=== PATIENT | male | born 1955 | race Caucasian/White ===

== ENCOUNTER 2019-02-13 09:26 | Emergency (ER) | payer MEDICARE ==
[~2019-02-13] VITALS: Ht 180.3 cm; Wt 95.5 kg
[2019-02-13 10:18] LABS: BASOPHILS # (AUTO) 0.1 X10'3 (0-0.2); BASOPHILS % (AUTO) 0.6 % (0-1); EOSINOPHILS % (AUTO) 0.4 % (0-6); HEMATOCRIT 48.2 % (42.0-52.0); HEMOGLOBIN 16.1 g/dl (14.0-17.9); LYMPHOCYTES % (AUTO) 23.3 % (21-51); MEAN CORPUSCULAR HGB CONC 33.4 g/dL (33.0-36.5); MEAN CORPUSCULAR VOLUME 93.1 FL (78-98); MEAN PLATELET VOLUME 7.3 FL (7.4-10.4); MONOCYTES # (AUTO) 0.9 X10'3 (0-0.9); MONOCYTES % (AUTO) 10.2 % (2-12); NEUTROPHILS # (AUTO) 5.6 X10'3 (1.8-7.7); NEUTROPHILS % (AUTO) 65.5 % (42-75); PLATELET COUNT 383 X10'3 (140-440); RED BLOOD COUNT 5.19 X10'6 (4.70-6.10); RED CELL DISTRIBUTION WIDTH 14.3 % (11.5-14.5); WHITE BLOOD COUNT 8.6 X10'3 (4.5-11.0)
[2019-02-13 10:31] LABS: ALANINE AMINOTRANSFERASE 28 U/L (12-78); ALBUMIN 3.7 G/DL (3.4-5.0); ALBUMIN/GLOBULIN RATIO 0.9 (1.1-1.5); ALKALINE PHOSPHATASE 74 IU/L (46-116); ANION GAP 6 (8-16); ASPARTATE AMINO TRANSFERASE 16 U/L (10-37); BILIRUBIN,TOTAL 0.2 MG/DL (0.1-1.0); BLOOD UREA NITROGEN 12 MG/DL (7-18); BUN/CREATININE RATIO 10.2 (5.4-32.0); CHLORIDE 104 MMOL/L (99-107); CREATININE 1.18 MG/DL (0.60-1.10); GLUCOSE 121 MG/DL (70-104); POTASSIUM 4.4 MMOL/L (3.5-5.1); SODIUM 139 MMOL/L (135-145); TOTAL CARBON DIOXIDE 29.1 MMOL/L (24-32); TOTAL PROTEIN 7.9 G/DL (6.4-8.2); eGFR 63 ML/MIN
[2019-02-13] MEDS ORDERED: ipratropium/albuterol 3ml nebule NEB ONE (11:05)
[2019-02-13] MEDS ORDERED: normal saline 1000ml 1,000 ML IV ONE (11:05)
[2019-02-13] MEDS ORDERED: ALBU8HFA PO (12:47)
--- NOTE | 2019-02-13 12:57 | NUR ---
DAUGHTER XIMENA CALLED FOR TRANPORT, PHONE NUMBER [phone].
[2019-02-13 13:16] VITALS: BP 128/90
== END 2019-02-13 13:20 | disposition home or self-care (01) ==
LOC: ER 09:26
DX: J40 Bronchitis, not specified as acute or chronic (principal); E11.9 Type 2 diabetes mellitus without complications; F41.9 Anxiety disorder, unspecified; R42 Dizziness and giddiness; R19.7 Diarrhea, unspecified; F32.9 Major depressive disorder, single episode, unspecified; Z79.899 Other long term (current) drug therapy
CPT/HCPCS: 36415; 71046; 80053; 83605; 84484; 85025; 87040; 93005; 94640; 96360; 99284; J7030; 94760

== ENCOUNTER 2024-08-31 14:37 | Emergency (ER) | payer BC ==
[~2024-08-31] VITALS: Ht 182.9 cm; Wt 90.9 kg
[2024-08-31 14:45] VITALS: BP 118/73; PULSE 94; RESP 16; TEMP 97.5; O2SAT 98
--- NOTE | 2024-08-31 15:39 | Physician Documentation ---
History of Present Illness ~ Chief Complaint: Urinary Retention Stated Complaint: NOT ABLE TO URINATE Time Seen by MD: 15:30 Primary Medical Doctor: patrice [facility] This is a 69-year-old male with a history of BPH who presents after not being able to urinate for 6 hours causing him some lower abdominal discomfort, however once I was able to speaks patient you reports that he was able to urinate just prior to being placed in the room though was unable to give us a urine sample. A bladder scan was performed and multiple readings demonstrated less than 60 mL of retained urine, representing no significant postvoid residual. Patient reports he is feeling otherwise well and does have a follow up with primary care for referral to urologist. Patient reports that he has been having episodes of urinary retention for some time now and believes the tamsulosin he is on is no longer working. Patient reports no other acute symptoms or concerns. Medication Reconciliation Allergies: Coded Allergies: No Known Allergies (Unverified , 08/31/24) Past Medical History Past Medical History: Bronchitis, BPH, Diabetes, Anxiety, Depression Past Surgical History: noncontributory Alcohol Use: None Drug Use: none Lives In: Home Review of Systems ROS Urinary retention as stated above in the HPI, otherwise all systems are reviewed and negative. Physical Exam Vital Signs: Temperature: 97.5, Source: Temporal, Heart Rate: 94, Respiratory Rate: 16, BP: 118/73, Pulse Oximetry: 98, Weight: 90.910 Oxygen Flow Rate: 0 Physical Exam VITALS: Reviewed and as above. GENERAL: Alert, nontoxic appearing, no apparent distress. RESPIRATORY: No increased work of breathing, no respiratory distress, speaking in full clear sentences GI: Soft, nondistended, nontender, no rebound, no guarding, bowel sounds present Progress Results/Orders Results/Orders Vital Signs 08/31/24 14:45 Temp 97.5 Pulse 94 Resp 16 B/P (MAP) 118/73 Pulse Ox 98 O2 Flow Rate 0 Medical Decision Making Findings This 69-year-old male with history of BPH presented to the emergency department with concern of not being able to urinate for 6 hours though just prior to being placed in ED room he was able to urinate and no longer has symptoms. As this is an ongoing problem patient does have follow up with in the next four days with his primary care provider for referral to Urology, patient is already on tamsulosin. On my exam patient was otherwise well-appearing and asymptomatic and therefore is appropriate for outpatient follow up. With shared decision- making patient will be discharged without further workup to follow up with the primary care, patient provided careful return to care precautions, patient verbalized he will return to the emergency department if symptoms return. Urinary Diff Dx:Considerations: Include: Prostatitis, Urolithiasis, Urinary Obstruction, Urethritis, Urinary retention, UTI Departure Disposition: HOME / SELF CARE / HOMELESS Impression: Primary Impression: Difficulty initiating urinary stream Condition: Improved Discharge Instructions: Acute Urinary Retention, Male Additional Instructions: It is reassuring you are able to urinate, please follow up as scheduled with your primary care provider for referral to Urology. Please return to the emergency department if symptoms return. Please return to the emergency department for any new or worsening concerning symptoms. Referrals: NO PRIMARY CARE PROVIDER (PCP) Education Educated: Patient Educated regarding: diagnosis, treatment, prognosis, need for follow up Signature Scribe Signature: No scribe Attestation: The note accurately reflects work and decisions made by me.TANESHA Mendez 08/31/24 15:46 SAMMY OCONNELL Aug 31, 2024 15:39
== END 2024-08-31 15:56 | disposition home or self-care (01) ==
LOC: ER 14:38
DX: R33.8 Other retention of urine (principal); E11.9 Type 2 diabetes mellitus without complications; F41.9 Anxiety disorder, unspecified; F32.A Depression, unspecified
CPT/HCPCS: 51798; 99284

== ENCOUNTER 2025-01-10 18:59 | Emergency (ER) | payer BC ==
[~2025-01-10] VITALS: Ht 182.9 cm; Wt 65.0 kg
[2025-01-10 19:12] VITALS: BP 118/61; PULSE 104; RESP 18; TEMP 97.3; O2SAT 96
--- NOTE | 2025-01-10 20:36 | RADIOLOGY REPORT ---
EXAM: DI WRIST, COMPLETE (3VW MIN) INDICATION: Injury and Pain TECHNIQUE: 3 views of the left wrist COMPARISON: None FINDINGS/IMPRESSION: Comminuted impacted distal radial meta epiphyseal fracture with intra-articular extension. Significant dorsal tilt of the distal radiocarpal articular surface. Intra-articular extension in the into the distal radioulnar joint. Posttraumatic positive ulnar variance.
== END 2025-01-10 22:06 | disposition left against medical advice (07) ==
LOC: ER 19:00
DX: M25.532 Pain in left wrist (principal); Z53.21 Procedure and treatment not carried out due to patient leaving prior to being seen by health care provider; W01.0XXA Fall on same level from slipping, tripping and stumbling without subsequent striking against object, initial encounter; Y93.89 Activity, other specified; Y92.89 Other specified places as the place of occurrence of the external cause; Y99.8 Other external cause status
CPT/HCPCS: 73110; 99281